=== PATIENT | female | born 1955 | race Two or more races ===

== ENCOUNTER → 2017-08-11 | Outpatient (CLI) | payer BC ==
[~2017-08-11] MED LIST: ADVIL200 MG PO; COZAAR100 MG PO; LANTUS (IN100 UNIT/M SUB-Q; NEURONTIN300 MG PO; NOVOLOG100 UNIT/M SUB-Q
[2017-08-11 16:58] LABS: PERITONEAL FLUID TURBIDITY CLEAR (CLEAR)
[2017-08-11 18:40] LABS: % PERITONEAL FLUID MONO/MACRO 68 % (0-0); % PERITONEAL FLUID NEUT 1 % (0-25)
== END | disposition disaster alternative care site (69) ==
LOC: GOPD 14:00
PROVIDERS: Internal Medicine Gastroenterology
DX: K74.60 Unspecified cirrhosis of liver (principal); R18.8 Other ascites
CPT/HCPCS: J2001; P9047